=== PATIENT | female | born 2000 | race Caucasian/White ===

== ENCOUNTER 2020-05-12 07:51 | Emergency (ER) | payer BC, SELFPAY ==
[2020-05-12 07:53] VITALS: BP 125/79; PULSE 85; RESP 15; TEMP 36.6; O2SAT 98; BMI 22.8
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
[2020-05-12 09:27] VITALS: BP 117/71
== END 2020-05-12 09:28 | disposition home or self-care (01) ==
PROVIDERS: Emergency Provider Emergency Medicine
DX: S80.12XA Contusion of left lower leg, initial encounter (principal); S00.81XA Abrasion of other part of head, initial encounter; V43.52XA Car driver injured in collision with other type car in traffic accident, initial encounter; Y93.I9 Activity, other involving external motion; Y92.410 Unspecified street and highway as the place of occurrence of the external cause; Y99.8 Other external cause status
CPT/HCPCS: 73590; 99284